=== PATIENT | female | born 1995 ===

== ENCOUNTER 2019-11-16 17:32 | Emergency (ER) | payer MEDICARE ==
[~2019-11-16] VITALS: Ht 160 cm; Wt 68.0 kg
--- OUTSIDE RECORDS SUMMARY | 2019-11-16 17:42 | XMS ---
PreManage Notification: MARY [place] Security Dietary Clerk Events No recent Security Events currently on file CRITERIA MET - [facility] - 2 Visits in 30 Days CARE PROVIDERS There are no care providers on record at this time. Joe has no Care Guidelines for this patient. Vivian VISIT COUNT (12 MO.) [address] Anthony TOTAL 3 NOTE: Visits indicate total known visits. ED/[facility] VISIT TRACKING (12 MO.) [facility]16[facility]2019 17[facility] [place] [facility] COMPLAINT: - ARM PAIN, INJ 11/07/2019 05:23 [facility] [place] TYPE: Emergency DIAGNOSES: 37498. R ARM INJ . Nondisplaced fracture of head of right radius, initial encoun . Unspecified injury of right wrist, hand and finger(s), initia 01/01/2019 20:47 [facility] [place] TYPE: Emergency COMPLAINT: - LOCALIZED ALLERGIC REACTION FROM BITEVS EARLY CELLULITIS DIAGNOSES: - Bitten or stung by nonvenomous insect and other nonvenomous a - Insect bite (nonvenomous) of left shoulder, initial encounter INPATIENT VISIT TRACKING (12 MO.) No inpatient visits to display in this time frame [email or web address]
[2019-11-16] MEDS ORDERED: BIRTH CONTROL (17:49)
== END 2019-11-16 18:55 | disposition home or self-care (01) ==
LOC: ED 17:32 → EDBD 17:33 → ED 18:55
DX: S63.501A Unspecified sprain of right wrist, initial encounter (principal); W19.XXXA Unspecified fall, initial encounter
CPT/HCPCS: 73110; 99283-25; A9270

== ENCOUNTER 2019-11-25 17:14 | Emergency (ER) | payer MEDICARE ==
[~2019-11-25] VITALS: Ht 160 cm; Wt 68.0 kg
--- OUTSIDE RECORDS SUMMARY | ~2019-11-25 | XMS | Encounter Summary ---
Demographics + + + | Address | [address] | | | [place] [address] | + + + | Home Phone | | + + + | Preferred Language | Unknown | + + + | Marital Status | Single | + + + | Episcopal Affiliation | 1023 | + + + | Race | Unknown | + + + | Ethnic Group | Unknown | + + + Author + + + | Author | [facility] | | | and [place] | + + + | Organization | [facility] | | | and [place] | + + + | Address | Unknown | + + + | Phone | Unavailable | + + + Support + + +---------+ + | Name | Relationship | Address | Phone | + + +---------+ + | Rosie Thomas | ECON | Unknown | | + + +---------+ + Care Team Providers + +------+ + | Care Budget Clerk Name | Role | Phone | + +------+ + | No, Physician | PCP | Unavailable | + +------+ + Reason for Visit + + + | Reason | Comments | + + + | Results, Imaging | | + + + Encounter Details +--------+ + + + + | Date | Type | Department | Care Team | Description | +--------+ + + + + | 10/21/ | Telephone | [facility] | No, Physician p | Results, Imaging | | 2019 | | [facility] | [facility] [address] | [address] [place], | | | | | | [place] [address] | | | | | | [phone] | | | +--------+ + + + + Social History + +-------+ +--------+------+ | Tobacco Use | Types | Packs/Day | Years | Date | | | | | Used | | + +-------+ +--------+------+ | Never Smoker | | | | | + +-------+ +--------+------+ + +---+---+---+ | Smokeless Tobacco: | | | | | Never Used | | | | + +---+---+---+ + + + | Sex Assigned at | Date Recorded | | | | + + + | Not on file | | + + + + + + + | Job Start Date | Occupation | Industry | + + + + | Not on file | Not on file | Not on file | + + + + + + + + | Travel History | Travel Start | Travel End | + + + + + + | No recent travel history available. | + + documented as of this encounter Plan of Treatment Not on filedocumented as of this encounter Visit Diagnoses Not on filedocumented in this encounter"
--- OUTSIDE RECORDS SUMMARY | ~2019-11-25 | XMS | Clinical Summary ---
Demographics + + + | Address | [address] | | | [place] [address] | + + + | Home Phone | | + + + | Preferred Language | Unknown | + + + | Marital Status | Single | + + + | Moravian Affiliation | 1023 | + + + | Race | Unknown | + + + | Ethnic Group | Unknown | + + + Author + + + | Author | [facility] [place] | | | and [place] | + + + | Organization | [facility] | | | and [place] [...] Team Providers + +------+ + | Care Water Regulator And Valve Repairer Name | Role | Phone | + +------+ + | No, Physician | PCP | Unavailable | + +------+ + Allergies No Known Allergies Medications No known medications Active Problems Not on file Social History + +-------+ +--------+------+ | Tobacco [...] recent travel history available. | + + Last Filed Vital Signs + + + + + | Vital Sign | Reading | Time Taken | Comments | + + + + + | Blood Pressure | 118/64 | 10/20/2018 1:45 PM | | | | | PDT | | + + + + + | Pulse | 79 | 10/20/2018 1:45 PM | | | | | PDT | | + + + + + | Temperature | 36.1 C (97 F) | 10/20/2018 1:45 PM | | | | | PDT | | + + + + + | Respiratory Rate | 16 | 10/20/2018 1:45 PM | | | | | PDT | | + + + + + | Oxygen Saturation | 100% | 10/20/2018 1:45 PM | | | | | PDT | | + + + + + | Inhaled Oxygen | - | - | | | Concentration | | | | + + + + + | Weight | 62.6 kg (138 lb) | 10/20/2018 1:45 PM | | | | | PDT | | + + + + + | Height | 160 cm (5' 3") | 10/20/2018 1:45 PM | | | | | PDT | | + + + + + | Body Mass Index | 24.45 | 10/20/2018 1:45 PM | | | | | PDT | | + + + + + Plan of Treatment + + + + + | Health Maintenance | Due Date | Last Done | Comments | + + + + + | Vaccine: | | | | | Dtap/Tdap/Td (1 - | 6 | | | | Tdap) | | | | + + + + + | Vaccine: HPV (1 - | | | | | Female 2-dose | 6 | | | | series) | | | | + + + + + | Cervical Cancer | | | | | Screening (Pap) | 6 | | | + + + + + | Vaccine: Influenza | | 04/18/2018 | | | (Season Ended) | 0 | | | + + + + + Results Not on filefrom Last 3 Months Insurance + +--------+ +--------+ +---------+--------+ | Payer | Benefi | Subscriber | Effect | Phone | Address | Type | | | t Plan | ID | anat | | | | | | / | | Dates | | | | | | Group | | | | | | + +--------+ +--------+ +---------+--------+ | [employer] | CAREOR | [id number] | 10/21/19 | [phone] | | Medica | | HMO | EGON | | 19-Pre | 0 | | id | | | HEALTH | | sent | | | | | | SHARE | | | | | | | | MDCD | | | | | | | | [place]MO [place] | | | | | | + +--------+ +--------+ +---------+--------+ + +--------+ +--------+ + + | Guarantor Name | Accoun | Relation to | Date | Phone | Billing Address | | | t Type | Patient | of | | | | | | | | | | + +--------+ +--------+ + + | Betina Varma | Person | Self [birth year] | [address] [place] | | | al/Fam | | 1995 | [phone] | [place] [address] | | | sherrill | | | 1 (Home) | | + +--------+ +--------+ + + Advance Directives + + + + + | Type | Date Recorded | Patient | Explanation | | | | Sports Management Internship | | + + + + + | Power of | | | | | Merchant Miller | | | | + + + + + | Advance | 10/20/2018 3:39 | | | | Directive | PM | | | + + + + +
--- OUTSIDE RECORDS SUMMARY | ~2019-11-25 | XMS | Clinical Summary ---
Demographics + + + | Address | [address] | | | [place] [address] | + + + | Home Phone | | + + + | Preferred Language | Unknown | + + + | Marital Status | Single | + + + | Orthodox Affiliation | 1023 | + + + | Race | Unknown | + + + | Ethnic Group | Unknown | + + + Author + + + | Author | [facility] | | | and [place] | + + + | Organization | [facility] | | | and [place] | [...] Team Providers + +------+ + | Care Internal Revenue Agent Name | Role | Phone | + [...] +---------+--------+ | [employer] | CAREOR | [id number] | 10/21/19 | [phone] | | Medica [...] + +--------+ +--------+ + + | Betina aVrma | Person | Self | [birth year] | [address] [place] | | | al/Fam | | 1995 | [phone] | [place] [address] | | | sherrill | | | 1 (Home) | | + +--------+ +--------+ + + Advance Directives + + + + + | Type | Date Recorded | Patient | Explanation | | | | Hose Cementer | | + + + + + | Power of | | | | | Transaction Processor | | | | + + + + + | Advance | 10/20/2018 3:39 | | | | Directive | PM | | | + + + + +
--- OUTSIDE RECORDS SUMMARY | ~2019-11-25 | XMS | Encounter Summary ---
Demographics + + + | Address | [address] | | | [place] [address] | + + + | Home Phone | | + + + | Preferred Language | Unknown | + + + | Marital Status | Single | + + + | Orthodoxy Affiliation | 1023 | + + + | Race | Unknown | + + + | Ethnic Group | Unknown | + + + Author + + + | Author | [facility] [place] | | | and [place] | + + + | Organization | [facility] | | | and [place] | [...] Team Providers + +------+ + | Care Wheel Shop Supervisor Name | Role | Phone | + +------+ + | No, Physician | PCP | Unavailable | + +------+ + Reason for Visit +--------+ + | Reason | Comments | +--------+ + | Other | lump on breast x 2 weeks. | +--------+ + Encounter Details +--------+---------+ + + + | Date | Type | Department | Care Team | Description | +--------+---------+ + + + | 10/20/ | Office | [facility] | Christine Goodman, | Breast lump on right | | 2019 | Visit | [facility] | MECHANICAL PENCILS ASSEMBLER [address] [place] | side at 11 o'clock | | | | [facility] [address] | [place] [address] | position (Primary | | | | [address] [place], | [phone] | Dx) | | | | [place] [address] | | | | | | [phone] | | | +--------+---------+ + + + Social History + +-------+ [...] + + documented as of this encounter Last Filed Vital Signs + + + [...] | | + + + + + documented in this encounter Patient Instructions Patient Instructions GoodmanChristine, MECHANICAL PENCILS ASSEMBLER - 10/20/2018 2:26 PM PDT Breast Lump, Uncertain Cause A lump was found in your breast. Most breast lumps arenot cancer.Theymay be causedb y normal changes in the breast tissue due to hormone variations that occur with your menstru al cycle. Some women may form lumps that are painful and tender. Others may form lumps that are painless. At this time, is not possible to be certain of the cause of your lump without further evalu ation. This could include: Another exam by your healthcare provider or a flower arranger Imaging tests, such as a mammogram or ultrasound Biopsy(procedure to remove small tissue samples from the breast lump) Your healthcare provider will explain any additional testing that is needed. Be sure to get answers to any questions you may have. Home care Until a diagnosis is made, you may be advised to do the following: If you are having breast pain: ? Take an ayyo-vnx-lvyqpor pain reliever, if directed to by your provider. ? Wear a well-fitted bra or sports bra for extra support. If you have breast pain at night, try wearing the bra during sleep. ? Apply a warm compress (towel soaked in warm water) to the breast.You may also use a hot water bottle. Check your breasts each day.Keep a log of whether the lump seems to be changing in siz e or tenderness with your period. This can help your healthcare provider make the correct di agnosis. Follow-up care Follow up with your healthcare provider, or as directed.Keep all appointments. Also, prep are for any upcoming tests as directed. When to seek medical advice Call your healthcare provider right away if any of these occur: Fever of 100.4F (38C) or higher Redness or swelling of the breast Discharge from the nipple Visible changes in the skin over the nipple or breast Lump grows larger, feels very hard, or has an irregular shape New lumps form Date Last Reviewed: 09/15/201619995658-2478 [employer]. [address] [place] [address], [place] [address]. All righ ts reserved. This information is not intended as a substitute for professional medical care. Always follow your healthcare professional's instructions. documented in this encounter Progress Notes Christine Goodman FNP - 10/20/2018 3:10 PM PDTFormatting of this note might be different fro m the original. Subjective: Patient ID: Betina Varma is a 23 y.o. female. Chief Complaint Patient presents with Other lump on breast x 2 weeks. HPI She noted that she has had two weeks of a painless lump on her right upper out breast quadr ant. This has never happened before. She has not been sick. No family history of breast cancer. She has never been , and is obvious not . History reviewed. No pertinent past medical history. Review of Systems Constitutional: Negative for chills and fever. No Known Allergies There are no active problems to display for this patient. No current outpatient prescriptions on file prior to visit. No current facility-administered medications on file prior to visit. Objective: Vitals: 10/20/18 1345 BP: 118/64 Pulse: 79 Resp: 16 Temp: 36.1 C (97 F) PainSc: 0 - No pain Physical Exam Constitutional: No distress. Cardiovascular: Normal rate. Pulmonary/Chest: No respiratory distress. She has no wheezes. Genitourinary: No breast swelling, tenderness, discharge or bleeding. Genitourinary Comments: Right upper outer quadrant lump that is painless and moveable at 11 O' clock. Skin: She is not diaphoretic. No results found for this or any previous visit (from the past 24 hour(s)). US BREAST LIMITED RIGHT Assessment: 1. Breast lump on right side at 11 o'clock position - US Breast Limited Right Plan: Discussed that this could be a lymph node, vs cyst, vs. Cancer. Will wait on ultrasound results. Return in about 1 week (around 10/27/2018) for With your PCP, If no improvemnet or sooner if acutely worsening.. Electronically Signed by ELSA [email or web address] [facility] documented in this en counter Plan of Treatment Not on filedocumented as of this encounter Procedures + +--------+ + + + | Procedure Name | Priori | Date/Time | Associated Diagnosis | Comments | | | ty | | | | + +--------+ + + + | US BREAST LIMITED | STAT | 10/20/2018 | Breast lump on | Results for this | | RIGHT | | 4:14 PM | right side at 11 | procedure are in the | | | | PDT | o'clock position | results section. | + +--------+ + + + documented in this encounter Results US Breast Limited Right (10/20/2018 4:14 PM PDT) + + | Specimen | + + | | + + + + | Addenda | + + | Addendum by Jam Varghese MD on 10/21/2018 7:12 AM ADDENDUM: In the case | | of a palpable finding negative or benign result does not exclude the possibility of | | malignancy and any further evaluation should be based on clinical assessment. | | Dictated by: Jam Varghese | | 7:09 AM | + + + + + | Impressions | Performed At | + + + | IMPRESSION: BI-RADS 2. Finding compatible with cyst. the | [facility] | | lesion would be amendable to ultrasound-guided aspiration if | | | clinically desired. COMMENT: 1. A negative or "no | | | suspicious findings" mammogram report should not delay biopsy if | | | clinical suspicious findings are present. 2. About 7% of | | | breast cancers are not visible on mammogram. 3. Dense | | | breasts can obscure significant breast masses. COMMENT: BIRADS | | | category 0 Incomplete: Needs additional imaging evaluation. BIRADS | | | category 1 Negative mammogram. BIRADS category 2 Benign findings. | | | BIRADS category 3 Probably benign finding, short interval follow-up | | | suggested. BIRADS category 4 Suspicious for/of malignancy. BIRADS | | | category 5 Highly suggestive for/of malignancy. Dictated by: | | | Jam Varghese Electronically Signed by: Jam Varghese on | | | 10/20/2018 4:42 PM | | + + + + + + | Narrative | Performed At | + + + | EXAMINATION: US BREAST LIMITED RIGHT HISTORY: right upper | [facility] | | breast lump TECHNIQUE: Computer-aided detection analysis was | | | performed and included in the interpretation of this study. | | | FINDINGS: A rounded anechoic 4 mm lesion is noted in region of | | | palpable finding as defined by the patient 11:30 position. Mild | | | posterior acoustic enhancement noted. No Doppler flow seen within | | | the lesion. Subtle rounded hyperechogenicity is present within the | | | adjacent tissue without distinct hyperemic flow. Doppler flow is | | | noted within the region of increased echogenicity. The finding may | | | relate to mild inflammatory process. | | + + + + +---------+ + + | Performing | Address | City/State/Zipcode | Phone Number | | Organization | | | | + +---------+ + + | [facility] | | | | + +---------+ + + documented in this encounter Visit Diagnoses + + | Diagnosis | + + | Breast lump on right side at 11 o'clock position - Primary Lump or mass in breast | + + documented in this encounter
--- OUTSIDE RECORDS SUMMARY | ~2019-11-25 | XMS | Encounter Summary ---
Demographics + + + | Address | [address] | | | [place] [address] | + + + | Home Phone | | + + + | Preferred Language | Unknown | + + + | Marital Status | Single | + + + | Hinduism Affiliation | MOS | + + + | Race | Black or | + + + | Ethnic Group | Not or | + + + Author + + + | Organization | Unknown | + + + | Address | Unknown | + + + | Phone | Unavailable | + + + Support + + +---------+ + | Name | Relationship | Address | Phone | + + +---------+ + | Any Declines | ECON | Unknown | Unavailable | + + +---------+ + Care Team Providers + +------+ + | Care Automotive Glass Installer Name | Role | Phone | + +------+ + | No Pcp Per Patient | PCP | Unavailable | + +------+ + Encounter Details +--------+--------+ + + + | Date | Type | Department | Care Team | Description | +--------+--------+ + + + | 11/06/ | Travel | | | | | 2020 | | | | | +--------+--------+ + + + Social History + +-------+ +--------+------+ | Tobacco Use | Types | Packs/Day | Years | Date | | | | | Used | | + +-------+ +--------+------+ | Never Assessed | | | | | + +-------+ +--------+------+ + + + | Sex Assigned at [...] recent travel history available. | + + + + + + | COVID-19 Exposure | Response | Date Recorded | + + + + | In the last month, have you been in contact | No / Unsure | 11/07/2019 5:14 AM | | with someone who was confirmed or | | PDT | | suspected to have Coronavirus / COVID-19? | | | + + + + documented as of this encounter Plan of Treatment Not on filedocumented as of this encounter Visit Diagnoses Not on filedocumented in this encounter"
--- OUTSIDE RECORDS SUMMARY | ~2019-11-25 | XMS | Encounter Summary ---
Demographics + + + | Address | [address] | | | [place] [address] | + + + | Home Phone | | + + + | Preferred Language | Unknown | + + + | Marital Status | Single | + + + | Anglican Affiliation | 1023 | + + + | Race | Unknown | + + + | Ethnic Group | Unknown | + + + Author + + + | Author | [facility] | | | and [place] | + + + | Organization | [facility] | | | and [place] [...] Team Providers + +------+ + | Care Mangle Roll Operator Name | Role | Phone | + +------+ + | No Physician | PCP | Unavailable | + +------+ + Reason for Visit +---------+ + | Reason | Comments | +---------+ + | Results | | +---------+ + Encounter Details +--------+ + + + + | Date | Type | Department | Care Team | Description | +--------+ + + + + | 10/20/ | Telephone | [facility] | Physician Debra p | Results | | 2019 | | [facility] [address] [place], | | | | | | [place] [address] | | | | | | [phone] | | | +--------+ + + + [...]
--- OUTSIDE RECORDS SUMMARY | ~2019-11-25 | XMS | Encounter Summary ---
Demographics + + + | Address | [address] | | | [place] [address] | + + + | Home Phone | | + + + | Preferred Language | Unknown | + + + | Marital Status | Single | + + + | Oriental Orthodox Affiliation | 1023 | + + + | Race | Unknown | + + + | Ethnic Group | Unknown | + + + Author + + + | Author | [facility] | | | and [place] | + + + | Organization | [facility] | | | and [place] | [...] Team Providers + +------+ + | Care Brake Specialist Name | Role | Phone | + [...] | | | | | | [place] [address] | | | | | | [phone] | | | +--------+ + + + [...]
--- OUTSIDE RECORDS SUMMARY | ~2019-11-25 | XMS | Clinical Summary ---
Demographics + + + | Address | [address] | | | [place] [address] | + + + | Home Phone | | + + + | Preferred Language | Unknown | + + + | Marital Status | Single | + + + | Jewish Affiliation | MOS | + + + | Race | Black or | + + + | Ethnic Group | Not or | + + + Author + + + | Author | [facility] | + + + | Organization | [facility] | + + + | Address | Unknown | + + + | Phone | Unavailable | + + + Support + + +---------+ + | Name | Relationship | Address | Phone | + + +---------+ + | Any Declines | ECON | Unknown | Unavailable | + + +---------+ + Care Team Providers + +------+ + | Care Manager Subway Name | Role | Phone | + +------+ + | No Pcp Per Patient | PCP | Unavailable | + +------+ + Source Comments ADRIA is fully live on both [facility] and [facility] Allergies No Known Allergies Medications + + + +---------+------+------+-------+ | Medication | Sig | Dispensed | Refills | Star | End | Statu | | | | | | t | Date | s | | | | | | Date | | | + + + +---------+------+------+-------+ | | Take 1 tablet by | | 0 | / | 01/0 | Activ | | norgestimate-ethinyl | mouth once daily. | | | 08/06 | 09/06 | e | | estradioL | | | | 19 | 21 | | | (SPRINTEC) 0.25-35 | | | | | | | | mg-mcg oral tablet | | | | | | | + + + +---------+------+------+-------+ Active Problems Not on file Encounters +--------+ + + + + | Date | Type | Specialty | Care Team | Description | +--------+ + + + + | 11/06/ | Emergency | Emergency Medicine | Kita Cordero, | | | 2019 | | | MD | | +--------+ + + + + | 11/06/ | Travel | | | | | 2019 | | | | | +--------+ + + + + from Last 3 Months Social History + +-------+ +--------+------+ | Tobacco [...] | | | + + + + Last Filed Vital Signs + + + + + | Vital Sign | Reading | Time Taken | Comments | + + + + + | Blood Pressure | 132/84 | 11/07/2019 5:27 AM | | | | | PDT | | + + + + + | Pulse | 77 | 11/07/2019 5:27 AM | | | | | PDT | | + + + + + | Temperature | 37 C (98.6 F) | 11/07/2019 5:27 AM | | | | | PDT | | + + + + + | Respiratory Rate | 16 | 11/07/2019 5:27 AM | | | | | PDT | | + + + + + | Oxygen Saturation | 100% | 11/07/2019 5:27 AM | | | | | PDT | | + + + + + | Inhaled Oxygen | - | - | | | Concentration | | | | + + + + + | Weight | - | - | | + + + + + | Height | - | - | | + + + + + | Body Mass Index | - | - | | + + + + + Plan of Treatment + + + + + | Health Maintenance | Due Date | Last Done | Comments | + + + + + | Preconception/contra | | | | | ception counseling | 5 | | | | (one patel question) | | | | + + + + + | Influenza (Flu) | | 04/18/2018 | | | vaccination (#1) | 9 | | | + + + + + | Pneumococcal | Aged Out | | No longer eligible | | vaccination | | | based on patient's | | | | | age to complete this | | | | | topic | + + + + + Procedures + +--------+ + + + | Procedure Name | Priori | Date/Time | Associated Diagnosis | Comments | | | ty | | | | + +--------+ + + + | X-RAY ELBOW 3 VIEWS | Urgent | 11/07/2019 | | Results for this | | RIGHT | | 6:04 AM | | procedure are in the | | | | PDT | | results section. | + +--------+ + + + | X-RAY FOREARM 2 | Urgent | 11/07/2019 | | Results for this | | VIEWS RIGHT | | 5:56 AM | | procedure are in the | | | | PDT | | results section. | + +--------+ + + + from Last 3 Months Results X-RAY ELBOW 3 VIEWS RIGHT (11/07/2019 6:04 AM PDT) + + | Specimen | + + | | + + + + + | Narrative | Performed At | + + + | [address] | [facility] | | [place] [address] | DEPARTMENT OF | | [phone] Name: MARY BETH HESTER Phys: | RADIOLOGY | | KITA CORDERO : 1995 Sex: F | | | CSN: [id number] MR# [id number] Exam Date: | | | 11/07/2019 EXAM: X-RAY ELBOW 3 VIEWS RIGHT CLINICAL HISTORY: | | | Right arm pain after fall COMPARISON: None available. | | | TECHNIQUE: Four views FINDINGS: Bones: There is a minimally | | | displaced fracture of the radial neck as evidence by the cortical | | | buckle and disruption. The radiocapitellar alignment is | | | well-maintained. There are no other fractures. Joints: No | | | acute dislocation. No significant degenerative changes. Soft | | | tissues: Soft tissue swelling with anterior and posterior fat pad | | | signs are evident. IMPRESSION: Positive for fracture at the | | | radial neck accompanied by soft tissue swelling. REPORT | | | SIGNED IN OTHER VENDOR SYSTEM 11/07/2019 Reported by: Gina | | | MD Rosalina Electronically signed by: Gina Romano MD | | | Transcribed Date/Time: 11/07/2019 08:28 Truss Designer: FLUENCY | | | | | + + + + + | Procedure Note | + + | Interface, Radiology Results - 11/07/2019 8:33 AM PDT [address] | | [address] [place] [address] | | Name: MARY BETH HESTER Phys: KITA CORDERO : 1995 Sex: F | | CSN: [id number] MR# [id number] Exam Date: 11/07/2019 EXAM:X-RAY ELBOW 3 VIEWS | | RIGHT CLINICAL HISTORY:Right arm pain after fall COMPARISON:None available. | | TECHNIQUE:Four views FINDINGS:Bones: There is a minimally displaced fracture of the | | radial neck asevidence by the cortical buckle and disruption. The | | radiocapitellaralignment is well-maintained. There are no other fractures. Joints: No | | acute dislocation. No significant degenerative changes. Soft tissues: Soft tissue | | swelling with anterior and posterior fatpad signs are evident. IMPRESSION:Positive for | | fracture at the radial neck accompanied by soft tissueswelling. REPORT SIGNED IN | | OTHER VENDOR SYSTEM 11/07/2019 Reported by: Gina Romano MD Electronically signed | | by: Gina Romano MD Transcribed Date/Time: 11/07/2019 08:28Transcriptionist: FLUENCY | | | | | |CLINICAL HISTORY: | |Right arm pain after fall | | | |COMPARISON: | |None available. | | | |TECHNIQUE: | |Four views | | | |FINDINGS: | |Bones: There is a minimally displaced fracture of the radial neck as | |evidence by the cortical buckle and disruption. The radiocapitellar | |alignment is well-maintained. There are no other fractures. | | | |Joints: No acute dislocation. No significant degenerative changes. | | | |Soft tissues: Soft tissue swelling with anterior and posterior fat | |pad signs are evident. | | | |IMPRESSION: | |Positive for fracture at the radial neck accompanied by soft tissue | |swelling. | | | | | | REPORT SIGNED IN OTHER VENDOR SYSTEM 11/07/2019 | |Reported by: Gina Romano MD | | | |Electronically signed by: Gina Romano MD | | | |Transcribed Date/Time: 11/07/2019 08:28 | |Truss Designer: FLUENCY | | | | | | | + + + +---------+ + + | Performing | Address | City/State[facility] | Phone Number | | Organization | | | | + +---------+ + + | [facility] | | | | [facility] | | | | + +---------+ + + X-RAY FOREARM 2 VIEWS RIGHT (11/07/2019 5:56 AM PDT) + + | Specimen | + + | | + + + + + | Narrative | Performed At | + + + | [address] | [facility] | | [place], [place] [address] [place] [address] | | [phone] Name: MARY BETH HESTER Phys: | RADIOLOGY | | KITA CORDERO : 1995 Sex: F | | | CSN: [id number] MR# [id number] Exam Date: | | | 11/07/2019 EXAM: X-RAY FOREARM 2 VIEWS RIGHT CLINICAL | | | HISTORY: Arm pain after fall COMPARISON: None available. | | | TECHNIQUE: Frontal and lateral views. FINDINGS: Bones: There | | | is a fracture at the radial neck as demonstrated by the cortical | | | buckle on 1 of the two views. There is no significant displacement. | | | Good anatomic alignment is maintained. Joints: No acute | | | dislocation. No significant degenerative changes. Soft tissues: | | | Anterior and posterior fat pad signs are evident. IMPRESSION: | | | Positive for fracture at the radial neck. REPORT SIGNED IN | | | OTHER VENDOR SYSTEM 11/07/2019 Reported by: Gina Romano MD | | | Electronically signed by: Gina Romano MD Transcribed Date/Time: | | | 11/07/2019 08:16 Truss Designer: FLUENCY | | + + + + + | Procedure Note | + + | Interface, Radiology Results - 11/07/2019 8:20 AM PDT [address] | | [place] [address] | | Name: MARY BETH HESTER Phys: KITA CORDERO : 1995 Sex: F | | CSN: [id number] MR# [id number] Exam Date: 11/07/2019 EXAM:X-RAY FOREARM 2 VIEWS | | RIGHT CLINICAL HISTORY:Arm pain after fall COMPARISON:None available. TECHNIQUE:Frontal | | and lateral views. FINDINGS:Bones: There is a fracture at the radial neck as | | demonstrated by thelmacortical buckle on 1 of the two views. There is no | | significantdisplacement. Good anatomic alignment is maintained. Joints: No acute | | dislocation. No significant degenerative changes. Soft tissues: Anterior and posterior | | fat pad signs are evident. IMPRESSION:Positive for fracture at the radial neck. | | REPORT SIGNED IN OTHER VENDOR SYSTEM 11/07/2019 Reported by: Gina Romano MD | | Electronically signed by: Gina Romano MD Transcribed Date/Time: 11/07/2019 | | 08:16Transcriptionist: KECIA | |X-RAY FOREARM 2 VIEWS RIGHT | | | |CLINICAL HISTORY: | |Arm pain after fall | | | |COMPARISON: | |None available. | | | |TECHNIQUE: | |Frontal and lateral views. | | | |FINDINGS: | |Bones: There is a fracture at the radial neck as demonstrated by the | |cortical buckle on 1 of the two views. There is no significant | |displacement. Good anatomic alignment is maintained. | | | |Joints: No acute dislocation. No significant degenerative changes. | | | |Soft tissues: Anterior and posterior fat pad signs are evident. | | | |IMPRESSION: | |Positive for fracture at the radial neck. | | | | | | REPORT SIGNED IN OTHER VENDOR SYSTEM 11/07/2019 | |Reported by: Gina Romano MD | | | |Electronically signed by: Gina Romano MD | | | |Transcribed Date/Time: 11/07/2019 08:16 | |Truss Designer: KECIA | | | | | | | + + + +---------+ + + | Performing | Address | City/State/Zipcode | Phone Number | | Organization | | | | + +---------+ + + | [facility] | | | | [facility] | | | | + +---------+ + + from Last 3 Months Insurance + +--------+ +--------+-------+---------+--------+ | Payer | Benefi | Subscriber | Effect | Phone | Address | Type | | | t Plan | ID | anat | | | | | | / | | Dates | | | | | | Group | | | | | | + +--------+ +--------+-------+---------+--------+ | RAIL DOWELING MACHINE OPERATOR MEDICAID | RAIL DOWELING MACHINE OPERATOR | xxxxxxxx | Effect | | | Medica | | | JEROME | | anat | | | id | | | | | for | | | | | | HEALTH | | all | | | | | | SHARE | | dates | | | | + +--------+ +--------+-------+---------+--------+ + +--------+ +--------+ + + | Guarantor Name | Accoun | Relation to | Date | Phone | Billing Address | | | t Type | Patient | of | | | | | | | | | | + +--------+ +--------+ + + | Mary Beth Hester | Person | Self | [birth year] | [address] | | | al/Fam | | 1995 | [phone] | [facility] [address] | | | [place] | | | 1 (Home) | | + +--------+ +--------+ + +"
--- OUTSIDE RECORDS SUMMARY | ~2019-11-25 | XMS | Encounter Summary ---
Demographics + + + | Address | [address] | | | [place] [address] | + + + | Home Phone | | + + + | Preferred Language | Unknown | + + + | Marital Status | Single | + + + | Religion Affiliation | 1023 | + + + | Race | Unknown | + + + | Ethnic Group | Unknown | + + + Author + + + | Author | [facility] | | | and [place] | + + + | Organization | [facility] | | | and [place] [...] Team Providers + +------+ + | Care Rescue Instructor Name | Role | Phone | + +------+ + | No, Physician | PCP | Unavailable | + +------+ + Encounter Details +--------+ + + + + | Date | Type | Department | Care Team | Description | +--------+ + + + + | 10/20/ | Hospital | [facility] | Christine Goodman, | | | 2019 | Encounter | Hospital Ultrasound | EDITOR CONTINUITY AND SCRIPT [address] | | | | | [address] | [place] [address] | | | | | [place], [place] | [phone] | | | | | [address] | | | | | | [phone] | Radiologist, Cc Wgr | | +--------+ + + + + [...] + documented in this encounter Visit Diagnoses Not on filedocumented in this encounter
--- OUTSIDE RECORDS SUMMARY | ~2019-11-25 | XMS | Encounter Summary ---
Demographics + + + | Address | [address] | | | [place] [address] | + + + | Home Phone | | + + + | Preferred Language | Unknown | + + + | Marital Status | Single | + + + | Mosque Affiliation | 1023 | + + + | Race | Unknown | + + + | Ethnic Group | Unknown | + + + Author + + + | Author | [facility] | | | and [place] | + + + | Organization | [facility] | | | and [place] [...] Team Providers + +------+ + | Care Addictions Counselor Assistant Name | Role | Phone | + [...] | | | | | [address] [place], | | | | | | [place] [address] | | | | | | [phone] | | | +--------+ + + + [...]
--- OUTSIDE RECORDS SUMMARY | ~2019-11-25 | XMS | Encounter Summary ---
Demographics + + + | Address | [address] | | | [place] [address] | + + + | Home Phone | | + + + | Preferred Language | Unknown | + + + | Marital Status | Single | + + + | Presybeterian Affiliation | 1023 | + + + | Race | Unknown | + + + | Ethnic Group | Unknown | + + + Author + + + | Author | [facility] | | | and [place] | + + + | Organization | [facility] | | | and [place] [...] Team Providers + +------+ + | Care Tube Coater Name | Role | Phone | + [...] right | | 2019 | Visit | [facility] | UNION REPRESENTATIVE [address] | side at 11 o'clock | | | | [facility] [address] | [place] [address] | position (Primary | | | | [address] [place], | [phone] | Dx) | | | | [place] [address] | | | | | | [phone] | | | +--------+---------+ + + + [...] this encounter Patient Instructions Patient Instructions GoodmanChristine, UNION REPRESENTATIVE - 10/20/2018 2:26 PM PDT Breast Lump, [...] exam by your healthcare provider or a carton forming machine tender Imaging tests, such as a mammogram or [...] are having breast pain: ? Take an ylni-kdq-vyvoyet pain reliever, if directed to by your [...] shape New lumps form Date Last Reviewed: 09/15/201619996101-8973 [employer]. [address] [place] [address], [place] [address]. All righ ts reserved. This information is [...]
--- OUTSIDE RECORDS SUMMARY | ~2019-11-25 | XMS | Encounter Summary ---
Demographics + + + | Address | [address] | | | [place] [address] | + + + | Home Phone | | + + + | Preferred Language | Unknown | + + + | Marital Status | Single | + + + | Judaism Affiliation | 1023 | + + + | Race | Unknown | + + + | Ethnic Group | Unknown | + + + Author + + + | Author | [facility] | | | and [place] | + + + | Organization | [facility] [...] Team Providers + +------+ + | Care Aircraft Fuselage Framer Name | Role | Phone | + [...] 2019 | Encounter | Hospital Ultrasound | TEMPLE MARKER [address] | | | | | [address] | [place] [address] | | | | | [place], [place] | [phone] | | | | | [address] | | | | | | [phone] | Radiologist, Cc Wgr | | +--------+ [...]
--- OUTSIDE RECORDS SUMMARY | ~2019-11-25 | XMS | Clinical Summary ---
Demographics + + + | Address | [address] | | | [place] [address] | + + + | Home Phone | | + + + | Preferred Language | Unknown | + + + | Marital Status | Single | + + + | Roman Catholic Affiliation | MOS | + + + [...] Team Providers + +------+ + | Care Toll Gate Tender Name | Role | Phone | + +------+ + | No Pcp Per Patient | PCP | Unavailable | + +------+ + Source Comments ADRIA is fully live on both [facility] and [facility] InPatient.[facility] Allergies No Known Allergies Medications + + [...] | + + + | [address] | [facility] | | [place] [address] | DEPARTMENT OF | | [phone] Name: MARY BETH HESTER Phys: | RADIOLOGY | | KITA CORDERO : 1995 Sex: F | | | CSN: [id number] MR# [id number] Exam Date: | | | 11/07/2019 EXAM: [...] | | | Transcribed Date/Time: 11/07/2019 08:28 Punch Hand: FLUENCY | | | | | + + + + + | Procedure Note | + + | Interface, Radiology Results - 11/07/2019 8:33 AM PDT [address] | | [address] [place] [address] | | Name: MARY BETH HESTER Phys: KITA CORDERO : 1995 Sex: F | | CSN: [id number] MR# [id number] Exam Date: 11/07/2019 EXAM:X-RAY ELBOW 3 VIEWS [...] | | |Transcribed Date/Time: 11/07/2019 08:28 | |Punch Hand: FLUENCY | | | | | | | + + + +---------+ + + | Performing | Address | City/State/[facility] | Phone Number | | Organization | [...] | + + + | [address] | [facility] | | [place], [place] [address] [place] [address] | | [phone] Name: MARY BETH HESTER Phys: | RADIOLOGY | | KITA CORDERO : 1995 Sex: F | | | CSN: [id number] MR# [id number] Exam Date: | | | 11/07/2019 EXAM: [...] Transcribed Date/Time: | | | 11/07/2019 08:16 Punch Hand: FLUENCY | | + + + + + | Procedure Note | + + | Interface, Radiology Results - 11/07/2019 8:20 AM PDT [address] | | [place] [address] | | Name: MARY BETH HESTER Phys: KITA CORDERO : 1995 Sex: F | | CSN: [id number] MR# [id number] Exam Date: 11/07/2019 EXAM:X-RAY FOREARM 2 VIEWS | | RIGHT CLINICAL HISTORY:Arm pain after fall COMPARISON:None available. TECHNIQUE:Frontal | | and lateral views. FINDINGS:Bones: There is a fracture at the radial neck as | | demonstrated by themlacortical buckle on 1 of the two views. [...] | | |Transcribed Date/Time: 11/07/2019 08:16 | |Punch Hand: KECIA | | | | | | [...] | | | + +--------+ +--------+-------+---------+--------+ | GLASS INSTALLER TECHNICIAN MEDICAID | GLASS INSTALLER TECHNICIAN | xxxxxxxx | Effect | | | [...] al/Fam | | 1995 | [phone] | [facility] [address] | | | [place] | | | 1 (Home) | | + +--------+ +--------+ + +"
--- OUTSIDE RECORDS SUMMARY | ~2019-11-25 | XMS | Encounter Summary ---
Demographics + + + | Address | [address] | | | [place] [address] | + + + | Home Phone [...] Author + + + | Author | [facility] | + + + | Organization | [facility] | + + + | Address | Unknown | + + + | Phone | Unavailable | + + + Support + + +---------+ + | Name | Relationship | Address | Phone | + + +---------+ + | Any Declines | ECON | Unknown | Unavailable | + + +---------+ + Care Team Providers + +------+ + | Care Shell Coremaker Name | Role | Phone | + +------+ + | No Pcp Per Patient | PCP | Unavailable | + +------+ + Reason for Visit + + + | Reason | Comments | + + + | Arm Injury | Pateint presenting to the ED with c/o right arm pain that | | | radiates from her wrist to her elbow after falling while | | | rollerskating yesterday. She fell onto concrete with her arm | | | extended and felt pain immediately. She was unable to sleep due | | | to the pain. | + + + Encounter Details +--------+ + + + + | Date | Type | Department | Care Team | Description | +--------+ + + + + | 11/06/ | Emergency | Emergency | Kita Cordero, | | | 2019 | | Department at [facility] | MD [address] | | | | | Hospital [address] | [place], [place] | | | | | [place], | [address] | | | | | [place] [address] | [phone] | | | | | [phone] | | | +--------+ + + + [...] + + + documented in this encounter Discharge Instructions Instructions Kita Cordero MD - 11/07/2019Wear splint at all times until you are re-ev aluated; you may follow up in the urgent care for re-evaluation in about 10 days. You will be called with any abnormal Xray over-reads Use ice 20 minutes 2-3 times per day; Elevate your wrist/elbow Take ibuprofen or tylenol over the counter as directed as needed for pain. Wear sling for comfort but no more than 1 week. Perform Codman's exercises daily as instru cted: BEND OVER AT THE WAIST AND LET YOUR ARM RELAX COMPLETELY. SLOWLY SWING YOUR ARM FROM [id number] OR SMALL CIRCLES- 20 TIMES ABOUT 4 TIMES PER DAY TO PREVENT FROZEN SH OULDER. AttachmentsThe following attachments cannot be sent through Care Everywhere.Splint or Immob ilizer Use (Malian)Radial Head Fracture (Malian)documented in this encounter Medications at Time of Discharge + + + +---------+ + + | Medication | Sig | Dispensed | Refills | Start | End Date | | | | | | Date | | + + + +---------+ + + | | Take 1 tablet by | | 0 | 07/17/20 | | | norgestimate-ethinyl | mouth once daily. | | | 19 | 1 | | estradioL | | | | | | | (SPRINTEC) 0.25-35 | | | | | | | mg-mcg oral tablet | | | | | | + + + +---------+ + + documented as of this encounter [...] + + documented in this encounter Results X-RAY ELBOW 3 VIEWS RIGHT (11/07/2019 6:04 AM PDT) + + | Specimen | + + | | + + + + + | Narrative | Performed At | + + + | [address] | [facility] | | [place] [address] | [facility] | | [phone] Name: MARY BETH HESTER Phys: | RADIOLOGY | | GILKITA Perry : 1995 Sex: F | | | CSN: [id number] MR# [id number] Exam Date: | | | 11/07/2019 EXAM: [...] | | | Transcribed Date/Time: 11/07/2019 08:28 Investment Director: FLUENCY | | | | | + + + + + | Procedure Note | + + | Interface, Radiology Results - 11/07/2019 8:33 AM PDT [address] | | [address] [place] [address] | | Name: MARY BETH HESTER Phys: KITA CORDERO : 1995 Sex: F | | CSN: [id number] MR# [id number] Exam Date: 11/07/2019 EXAM:X-RAY ELBOW 3 VIEWS [...] | | |Transcribed Date/Time: 11/07/2019 08:28 | |Investment Director: FLUENCY | | | | | | [...] | + + + | [address] [place] [address] | [facility] | | [place] [address] DEPARTMENT | | [phone] Name: MARY BETH HESTER Phys: | RADIOLOGY | | KITA CORDERO : 1995 Sex: F | | | CSN: [id number] MR# [id number] Exam Date: | | | 11/07/2019 EXAM: [...] Transcribed Date/Time: | | | 11/07/2019 08:16 Investment Director: FLUENCY | | + + + + + | Procedure Note | + + | Interface, Radiology Results - 11/07/2019 8:20 AM PDT [address] | | [place] [address] | | Name: MARY BETH HESTER Phys: KITA CORDERO : 1995 Sex: F | | CSN: [id number] MR# [id number] Exam Date: 11/07/2019 EXAM:X-RAY FOREARM 2 VIEWS | | RIGHT CLINICAL HISTORY:Arm pain after fall COMPARISON:None available. TECHNIQUE:Frontal | | and lateral views. FINDINGS:Bones: There is a fracture at the radial neck as | | demonstrated by thecortical buckle on 1 of the two views. [...] MD Transcribed Date/Time: 11/07/2019 | | 08:16Transcriptionist: FLUENCY | |X-RAY FOREARM 2 VIEWS RIGHT | [...] | | |Transcribed Date/Time: 11/07/2019 08:16 | |Investment Director: KECIA | | | | | | [...] + | Diagnosis | + + | Injury of right wrist, initial encounter - Primary | + + | Closed nondisplaced fracture of head of right radius, initial encounter | + + documented in this encounter Administered Medications + +--------+ +--------+------+------+ | Medication Order | MAR | Action | Dose | Rate | Site | | | Action | Date | | | | + +--------+ +--------+------+------+ | acetaminophen (TYLENOL) tablet | Given | 11/07/19 | 650 mg | | | | 650 mg 650 mg, oral, ONCE, 1 | | 20 6:25 | | | | | dose, 11/07/19 at 0700 | | AM PDT | | | | + +--------+ +--------+------+------+ +---+---+ | | | +---+---+ documented in this encounter"
--- OUTSIDE RECORDS SUMMARY | ~2019-11-25 | XMS | Encounter Summary ---
Demographics + + + | Address | [address] | | | [place] [address] | + + + | Home Phone | | + + + | Preferred Language | Unknown | + + + | Marital Status | Single | + + + | Yazidi Affiliation | MOS | + + + [...] Team Providers + +------+ + | Care Airplane Mechanic Apprentice Name | Role | Phone | + [...]
--- OUTSIDE RECORDS SUMMARY | ~2019-11-25 | XMS | Encounter Summary ---
Demographics + + + | Address | [address] | | | [place] [address] | + + + | Home Phone | | + + + | Preferred Language | Unknown | + + + | Marital Status | Single | + + + | Confucianist Affiliation | MOS | + + + | Race | Black or | + + + | Ethnic Group | Not or | + + + Author + + + | Author | [facility] | + + + | Organization | [facility] | + + + | Address | Unknown | + + + | Phone | Unavailable | + + + Support + + +---------+ + | Name | Relationship | Address | Phone | + + +---------+ + | Any Declines | ECON | Unknown | Unavailable | + + +---------+ + Care Team Providers + +------+ + | Care Mold Bunch Trimmer Name | Role | Phone | + [...] | | 2019 | | Department at [facility] | MD [address] | | | | | [facility] [address] | [place], [place] | | | | | [place], | [address] | | | | | [place] [address] | [phone] | | | | | [phone] | | | +--------+ + + + [...] RELAX COMPLETELY. SLOWLY SWING YOUR ARM FROM TWRI-IO-EQTM OR SMALL CIRCLES- 20 TIMES ABOUT 4 TIMES PER DAY TO PREVENT FROZEN SH OULDER. AttachmentsThe following attachments cannot be sent through Care Everywhere.Splint or Immob ilizer Use (Bhutanese)Radial Head Fracture (Bhutanese)documented in this encounter Medications at Time of [...] | + + + | [address] | [facility] | | [place] [address] | [facility] | | [phone] Name: MARY BETH HESTER Phys: | RADIOLOGY | | GILKITA Perry : 1995 Sex: F | | | CSN: [id number] MR# [id number] Exam Date: | | | 11/07/2019 EXAM: [...] | | MD Rosalina Electronically signed by: Gnia Romano MD | | | Transcribed Date/Time: 11/07/2019 08:28 Binder Chainstitch: FLUENCY | | | | | + + + + + | Procedure Note | + + | Interface, Radiology Results - 11/07/2019 8:33 AM PDT [address] | | [address] [place] [id number] | | Name: MARY BETH HESTER Phys: KITA CORDERO : 1995 Sex: F | | CSN: [id number] MR# [id number] Exam Date: 11/07/2019 EXAM:X-RAY ELBOW 3 VIEWS [...] | | |Transcribed Date/Time: 11/07/2019 08:28 | |Binder Chainstitch: FLUENCY | | | | | | [...] | + + + | [address] [place] [address] | [facility] | | [place] [address] DEPARTMENT | | [phone] Name: MARY BETH HESTER Phys: | RADIOLOGY | | KITA CORDERO : 1995 Sex: F | | | CSN: [id number] MR# [id number] Exam Date: | | | 11/07/2019 EXAM: [...] Transcribed Date/Time: | | | 11/07/2019 08:16 Binder Chainstitch: FLUENCY | | + + + + + | Procedure Note | + + | Interface, Radiology Results - 11/07/2019 8:20 AM PDT [address] | | [place] [address] | | Name: MARY BETH HESTER Phys: KITA CORDERO : 1995 Sex: F | | CSN: [id number] MR# [id number] Exam Date: 11/07/2019 EXAM:X-RAY FOREARM 2 VIEWS [...] | | |Transcribed Date/Time: 11/07/2019 08:16 | |Binder Chainstitch: KECIA | | | | | | [...]
[~2019-11-25 17:14] MED LIST: BIRTH CONTROL
--- OUTSIDE RECORDS SUMMARY | 2019-11-25 17:18 | XMS ---
PreManage Notification: MARY B[place] Security Flight Information Expediter Events No recent Security Events currently on file CRITERIA MET - [facility] - 2 Visits in 30 Days CARE PROVIDERS There are no care providers on record at this time. Joe has no Care Guidelines for this patient. Vivian VISIT COUNT (12 MO.) [address] [facility] [address] [place] Eli TOTAL 4 NOTE: Visits indicate total known visits. ED/[facility] [place] [place] VISIT TRACKING (12 MO.) [facility]2019 [facility] [place] [facility] COMPLAINT: - HAND/ARM SWELLING 11/16/2019 17:33 [facility] [place] TYPE: Emergency COMPLAINT: - ARM PAIN, INJ DIAGNOSES: - Unspecified fall, initial encounter - Pain in right wrist - Unspecified sprain of right wrist, initial encounter 11/07/2019 05:23 [facility] [place] [facility] Emergency DIAGNOSES: 82630. R ARM INJ 67626. Nondisplaced fracture of head of right radius, initial encoun 97548. Unspecified injury of right wrist, hand and finger(s), initia 01/01/2019 20:47 [facility] [place] TYPE: Emergency COMPLAINT: - LOCALIZED ALLERGIC REACTION FROM BITEVS EARLY CELLULITIS DIAGNOSES: - Bitten or stung by nonvenomous insect and other nonvenomous a - Insect bite (nonvenomous) of left shoulder, initial encounter INPATIENT VISIT TRACKING (12 MO.) No inpatient visits to display in this time frame [id number]
[2019-11-25] MEDS ORDERED: TRIAMCINOLONE A15 G1 TOP (18:00)
[2019-11-25] MEDS ORDERED: CEPHALEXIN500 MG PO (18:00)
== END 2019-11-25 17:28 | disposition home or self-care (01) ==
LOC: ED 17:14
DX: M79.89 Other specified soft tissue disorders (principal)